=== PATIENT | female | born 1950 | race Caucasian/White ===

== ENCOUNTER 2017-05-16 10:31 | Observation (INO) | payer OTHER ==
[~2017-05-16] VITALS: Ht 165.1 cm; Wt 107.0 kg
[~2017-05-16 10:31] MED LIST: ADVAIR 500/501 DISK IH; ALBUTEROL SULF8.5 GM IH; ASPIR-LOW81 MG PO; GABAPENTIN100 MG PO; IBUPROFEN800 MG PO; LIDODERM 5% P1 PATCH TD; OXYCODONE HCL15 MG PO; PERCOCET 7.51 TABLET PO; PREDNISONE10 MG PO; PREDNISONE20 MG PO; SPIRONOLACT/HC1 EACH PO; ZANAFLEX4 M1 PO; ZANAFLEX4 MG PO; ZITHROMAX Z-PA250 MG PO
[2017-05-16 11:58] LABS: EOSINOPHIL (%) 16.2 % (0-5); EOSINOPHIL COUNT 0.9 K/uL (0-0.3); HEMATOCRIT 43.4 % (36.0-46.0); IMMATURE GRANULOCYTE (%) 0.3 % (0.0-0.7); INSTRUMENT ABS NEUTROPHIL CT 2.9 K/uL; LYMPHOCYTE COUNT 1.6 K/uL (1.0-2.8); MCH 31.4 PG (29.0-34.0); MCHC 32.5 G/DL (30.0-36.0); MCV 96.7 FL (83-99); MEAN PLAT.VOLUME 10.7 uM^3 (9.5-12.4); MONOCYTE (%) 6.2 % (3-12); MONOCYTE COUNT 0.4 K/uL (0-0.8); NEUTROPHIL (%) 49.7 % (45-76); NEUTROPHIL COUNT 2.9 K/uL (1.8-6.4); PLATELET COUNT 200 K/uL (156-360); RBC DIS.WIDTH-CV 13.6 % (11.8-14.6); RBC DIS.WIDTH-SD 48.7 % (39-53); RED BLOOD COUNT 4.49 M/uL (3.80-5.20); WHITE BLOOD COUNT 5.8 K/uL (4.1-10.2)
[2017-05-16 12:11] LABS: CHLORIDE 107 mEq/L (99-109); POTASSIUM 4.4 mEq/L (3.7-5.4); SODIUM 141 mEq/L (136-147)
[2017-05-16 12:12] LABS: GLUCOSE 81 mg/dL (70-99)
[2017-05-16 12:14] LABS: ANION GAP 8 MEQ/L (2-14)
[2017-05-16 12:16] LABS: GFR ESTIMATE (CALCULATED) > 59 mL/min/
[2017-05-16 12:17] LABS: UREA NITROGEN (BUN) 7 mg/dL (9-23)
[2017-05-16 15:12] VITALS: BP 139/65
[2017-05-16 15:20] LABS: TROP-I INTERPRETATION NEGATIVE; TROPONIN-I < 0.01 ng/mL (0.0-0.30)
[2017-05-16 20:00] VITALS: BP 154/75
[2017-05-16 21:10] LABS: TROP-I INTERPRETATION NEGATIVE; TROPONIN-I < 0.01 ng/mL (0.0-0.30)
[2017-05-16 23:27] VITALS: BP 126/64
[2017-05-17 02:35] LABS: TROP-I INTERPRETATION NEGATIVE; TROPONIN-I < 0.01 ng/mL (0.0-0.30)
[2017-05-17 03:40] VITALS: BP 129/58
[2017-05-17 09:25] VITALS: BP 151/72
[2017-05-17 12:17] VITALS: BP 141/70
[2017-05-17] MEDS ORDERED: CEFTIN500 MG PO (12:20)
[2017-05-17] MEDS ORDERED: ACIDOPHILUS LA1 EACH PO (12:21)
[2017-05-17] MEDS ORDERED: PROVENTIL,2.5 MG/3 M IH (12:22)
[2017-05-17] MEDS ORDERED: PREDNISONE10 MG PO (12:22)
== END 2017-05-17 13:40 | disposition home or self-care (01) ==
LOC: EME 10:31 → EDOF 13:32 → 5WEST 13:32 → EDOF 13:32 → 5WEST 15:00
PROVIDERS: Emergency Medicine; Internal Medicine
DX: J45.901 Unspecified asthma with (acute) exacerbation (principal); I87.2 Venous insufficiency (chronic) (peripheral); L03.116 Cellulitis of left lower limb; M79.89 Other specified soft tissue disorders; M79.605 Pain in left leg; I10 Essential (primary) hypertension; G89.29 Other chronic pain; Z91.030 Bee allergy status; Z79.82 Long term (current) use of aspirin
CPT/HCPCS: 71010; 80048; 84484; 85025; 87040; 93971; 94640 76; 94644; 94799; 99202; 99281; 99285; G0378; J0690; J1650; J2930; J7050; J7512

== ENCOUNTER 2018-02-12 10:12 | Emergency (ER) | payer OTHER ==
[~2018-02-12] VITALS: Ht 162.6 cm; Wt 106.9 kg
[~2018-02-12 10:12] MED LIST changes: +ACIDOPHILUS LA1 EACH PO; +CEFTIN500 MG PO; +PROVENTIL,2.5 MG/3 M IH
[2018-02-12 12:04] LABS: HEMATOCRIT 38.6 % (36.0-46.0); HEMOGLOBIN 12.5 G/DL (11.9-15.5); MCH 31.4 PG (29.0-34.0); MCHC 32.4 G/DL (30.0-36.0); PLATELET COUNT 192 K/uL (156-360); RBC DIS.WIDTH-CV 13.9 % (11.8-14.6); RBC DIS.WIDTH-SD 50.2 % (39-53); RED BLOOD COUNT 3.98 M/uL (3.80-5.20); WHITE BLOOD COUNT 6.7 K/uL (4.1-10.2)
[2018-02-12 12:13] LABS: CHLORIDE 108 mEq/L (99-109); POTASSIUM 4.1 mEq/L (3.7-5.4); SODIUM 143 mEq/L (136-147)
[2018-02-12 12:15] LABS: GLUCOSE 84 mg/dL (70-99)
[2018-02-12 12:18] LABS: CREATININE 0.9 mg/dL (0.6-1.3); GFR ESTIMATE (CALCULATED) > 59 mL/min/
[2018-02-12 12:19] LABS: UREA NITROGEN (BUN) 12 mg/dL (9-23)
[2018-02-12] MEDS ORDERED: PREDNISONE20 MG PO (12:43)
[2018-02-12 13:05] VITALS: BP 153/76
== END 2018-02-12 13:06 | disposition home or self-care (01) ==
LOC: EME 10:12
PROVIDERS: Nurse Practitioner Family
DX: J45.901 Unspecified asthma with (acute) exacerbation (principal); J44.9 Chronic obstructive pulmonary disease, unspecified; I10 Essential (primary) hypertension; E78.5 Hyperlipidemia, unspecified; Z86.73 Personal history of transient ischemic attack (TIA), and cerebral infarction without residual deficits; Z79.82 Long term (current) use of aspirin
CPT/HCPCS: 71046; 80048; 83880; 85027; 94640; 99281; 99285; J7512